=== PATIENT | male | born 1975 | race Caucasian/White ===

== ENCOUNTER 2025-02-13 02:22 | Outpatient (CLI) | payer MEDICAID, SELFPAY ==
[2025-02-13] MEDS: Acetaminophen 325 MG TAB (10:43)
[2025-02-13] MEDS: diphenhydrAMINE 25 MG CAP (10:43)
[2025-02-13] MEDS: Hydrocortisone SOD SUC. 100 MG VIAL (10:44)
[2025-02-13 11:05] LABS: HCT 36.0 % (40.0-50.0); HGB 12.1 g/dL (13.5-17.5); MCH 30.9 pg (27.0-33.0); MCHC 33.6 % (32.0-36.0); MCV 92 fL (80-95); MPV 11.1 fL (8.0-11.0); Platelet Count 248 10^3/uL (130-400); RBC 3.91 10^6/uL (4.36-5.78); RDW 13.2 % (11.8-14.1); RDW-SD 45.0 fL; WBC 8.04 10^3/uL (4.4-10.8)
[2025-02-13 11:16] VITALS: BP 108/72; PULSE 70; RESP 18; TEMP 36.9; O2SAT 97
[2025-02-13 11:22] LABS: ALT 20 U/L (10-49); AST 29 U/L (<34); Albumin 4.2 g/dL (3.4-5.0); Alkaline Phosphatase 61 U/L (46-116); Bilirubin, Direct 0.1 mg/dL (<=0.3); Bilirubin, Total 0.50 mg/dL (0.2-1.2); Total Protein 6.9 g/dL (5.7-8.2)
[2025-02-13 11:29] LABS: C-Reactive Protein < 0.50 mg/dL (<=0.50)
[2025-02-13 11:40] VITALS: BP 109/73; PULSE 74; RESP 18; TEMP 36.8; O2SAT 98
== END 2025-02-13 02:23 | disposition home or self-care (01) ==
PROVIDERS: Internal Medicine Gastroenterology; PCP General Practice; Visit Provider Nurse Practitioner Acute Care
DX: K50.018 Crohn's disease of small intestine with other complication (principal)
CPT/HCPCS: 80076; 85027; 96365; 86140; J1720; J1745